=== PATIENT | female | born 1975 | race African-American/Black ===

== ENCOUNTER 2021-06-29 07:49 | Emergency (ER) | payer BC, SELFPAY ==
[2021-06-29] MEDS ORDERED: Dexamethasone 10 MG/ML VIAL ONE (08:35)
[2021-06-29] MEDS ORDERED: Acetaminophen/Codeine 30-300mg Tablet ONE (08:35)
[2021-06-29] MEDS ORDERED: Ventolin HFA Inhaler 60 PUFF INHALER ONE (08:36)
[2021-06-29] MEDS ORDERED: Ibuprofen 200 MG TAB ONE (08:36)
[2021-06-29 17:25] LABS: SARS-CoV-2 PCR by NAA Not Detected (NotDetected)
== END 2021-06-29 09:50 | disposition home or self-care (01) ==
LOC: CSHERS 07:49
DX: J06.9 Acute upper respiratory infection, unspecified (principal); Z20.822 Contact with and (suspected) exposure to COVID-19
CPT/HCPCS: 87804; J1100; U0003; U0005